=== PATIENT | female | born 1970 | race Caucasian/White ===

== ENCOUNTER → 2019-06-08 | Emergency (ER) | payer SELFPAY ==

== ENCOUNTER 2020-04-07 20:44 | Emergency (ER) | payer SELFPAY ==
--- NOTE | 2020-04-07 21:50 | RAD ---
EXAM: XR Chest, 1 View CLINICAL HISTORY: sob TECHNIQUE: Frontal view of the chest. COMPARISON: No relevant prior studies available. FINDINGS: Lungs: Unremarkable. No consolidation. Pleural space: Unremarkable. No pneumothorax. Heart: Unremarkable. No cardiomegaly. Mediastinum: Unremarkable. Bones/joints: Unremarkable. IMPRESSION: No abnormality noted. Electronically signed by: Gissell Crowley MD 04/07/2020 9:48 PM CDT
--- NOTE | 2020-04-07 22:00 | ED.PDOC ---
History of Present Illness - General Chief Complaint: Respiratory Problem Time Seen by Provider: 04/07/20 20:55 Source: patient Exam Limitations: no limitations - History of Present Illness Initial Comments: The patient is a 49-year-old female presented emergency room secondary to a constellation of symptoms. Symptoms have been ongoing for the last week. No definite fever. She has a feeling of very mild shortness of breath but no fever. No cough. No sore throat. No runny nose. She has had some mild nausea but only one episode of vomiting. Occasional mild diarrhea. The patient does take a water pill but has been outside fairly extensively in the heat recently. She is also been having some muscle cramps in the lower extremities. No focal neurological changes. No trauma. No urinary symptoms. Timing/Duration: 1 week Severity: moderate Improving Factors: nothing Worsening Factors: nothing Associated Symptoms: headaches, loss of appetite, malaise, nausea/vomiting Allergies/Adverse Reactions: Allergies NO KNOWN ALLERGY Allergy (Verified 04/07/20 21:10) Review of Systems - Review of Systems Constitutional: States: malaise EENTM: States: no symptoms reported Respiratory: States: short of breath Cardiology: States: no symptoms reported Gastrointestinal/Abdominal: States: diarrhea, nausea Genitourinary: States: no symptoms reported Musculoskeletal: States: muscle pain Skin: States: no symptoms reported Neurological: States: headache Endocrine: States: no symptoms reported Hematologic/Lymphatic: States: no symptoms reported All other Systems: No Change from Baseline Past Medical History (General) - Patient Medical History Hx Congestive Heart Failure: Yes Surgical History: tonsillectomy - Vaccination History Hx Tetanus, Diphtheria Vaccination: No Hx Influenza Vaccination: No Hx Pneumococcal Vaccination: No - Social History Hx Tobacco Use: No Hx Alcohol Use: No Hx Substance Use: No Hx Substance Use Treatment: No Hx Depression: No - Female History Patient is a Female of Child Bearing Age (10 -59 yrs old): Yes - 3 days ago Patient : No Family Medical History - Family History Mother Family History: Unknown Physical Exam - Physical Exam General Appearance: Alert, Comfortable, No apparent distress Eye Exam: bilateral normal Ears, Nose, Throat: hearing grossly normal, normal ENT inspection, normal pharynx Neck: full range of motion, supple Respiratory: lungs clear, normal breath sounds, no respiratory distress, no accessory muscle use Cardiovascular/Chest: normal peripheral pulses, regular rate, rhythm, no edema Peripheral Pulses: radial,right: 2+, radial,left: 2+ Gastrointestinal/Abdominal: non tender, soft - Obese Rectal Exam: deferred Back Exam: no CVA tenderness, no vertebral tenderness Extremity: normal range of motion, non-tender, normal inspection, no pedal edema, normal capillary refill 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 She needs to increase her fluid intake over the next 2 to 3 days and I would also encourage her to hold her water pills for the next 3 days. She can discuss with her primary care doctor about doing possibly a staggered dose over the summer while she is working outside. Further dehydration. Also vegetable picker some [id number] Maalox to reduce any gastritis issues that she is currently having. She needs to eat a bland diet and keep her self well-hydrated. Work-up here is otherwise reassuring. The patient did receive a coronavirus test however the likelihood of this being coronavirus is felt to be low. ER warnings are given. falguni wells [phone] - Results/Orders Results/Orders: Coronavirus test is a send out. EKG shows normal sinus rhythm at 64 bpm normal axis. Normal R wave progression. No ST segment or T wave changes indicative of acute ischemia. Normal QT interval. Mild left atrial dilation. Chest x-ray shows no acute pathology. Laboratory Tests 04/07/20 04/07/20 04/07/20 21:13 21:17 21:17 WBC 10.7 RBC 5.08 Hgb 12.6 Hct 38.6 MCV 75.9 L MCH 24.7 L MCHC 32.6 L RDW 15.7 H Plt Count 372 MPV 7.3 L Absolute Neuts (auto) 7.20 H Absolute Lymphs (auto) 2.30 Absolute Monos (auto) 0.80 Absolute Eos (auto) 0.40 Absolute Basos (auto) 0.10 Neutrophils % 66.8 Lymphocytes % 21.1 Monocytes % 7.2 Eosinophils % 4.1 Basophils % 0.8 PT INR PTT (SP) Sodium 142 Potassium 3.5 L Chloride 112 H Carbon Dioxide 21 Anion Gap 12.5 BUN 18 Creatinine 0.84 BUN/Creatinine Ratio 21.4 H Random Glucose 81 Serum Osmolality 284.0 Calcium 9.3 Magnesium 2.0 Total Bilirubin 0.5 AST 17 ALT 15 Alkaline Phosphatase 76 Creatine Kinase 94 CK-MB (CK-2) 1.4 CK-MB (CK-2) % Not Reportable Troponin I < 0.02 B-Natriuretic Peptide 101.0 H Serum Total Protein 8.1 Albumin 4.4 Globulin 3.7 H Albumin/Globulin Ratio 1.2 Amylase 109 H Lipase 47 TSH 2.97 Urine Color Yellow Urine Appearance Clear Urine pH 7.0 Ur Specific [place] 1.025 Urine Protein Negative Urine Glucose (UA) Negative Urine Ketones Negative Urine Blood Negative Urine Nitrite Negative Urine Bilirubin Negative Urine Urobilinogen 0.2 Ur Leukocyte Esterase Negative Urine RBC 0-1 Urine WBC 0-1 Ur Epithelial Cells 3-5 Urine Bacteria Rare Urine HCG, Qual Group A Strep Rapid 04/07/20 04/07/20 21:17 21:17 WBC RBC Hgb Hct MCV MCH MCHC RDW Plt Count MPV Absolute Neuts (auto) Absolute Lymphs (auto) Absolute Monos (auto) Absolute Eos (auto) Absolute Basos (auto) Neutrophils % Lymphocytes % Monocytes % Eosinophils % Basophils % PT 9.8 INR < 1.00 PTT (SP) 22.8 Sodium Potassium Chloride Carbon Dioxide Anion Gap BUN Creatinine BUN/Creatinine Ratio Random Glucose Serum Osmolality Calcium Magnesium Total Bilirubin AST ALT Alkaline Phosphatase Creatine Kinase CK-MB (CK-2) CK-MB (CK-2) % Troponin I B-Natriuretic Peptide Serum Total Protein Albumin Globulin Albumin/Globulin Ratio Amylase Lipase TSH Urine Color Urine Appearance Urine pH Ur Specific [place] Urine Protein Urine Glucose (UA) Urine Ketones Urine Blood Urine Nitrite Urine Bilirubin Urine Urobilinogen Ur Leukocyte Esterase Urine RBC Urine WBC Ur Epithelial Cells Urine Bacteria Urine HCG, Qual Negative Group A Strep Rapid Negative Departure - Departure Clinical Impression: Dehydration Disposition: Discharge to Home or Self Care Condition: Fair Departure Forms: ED Discharge - Pt. Copy, Patient Portal Self Enrollment Instructions: Dehydration, Adult (DC) Diet: regular diet Activity: increase activity as tolerated Additional Instructions: The patient is a 49-year-old female presented emergency room with a constellation of symptoms that are mostly most likely related to dehydration. She needs to increase her fluid intake over the next 2 to 3 days and I would also encourage her to hold her water pills for the next 3 days. She can discuss with her primary care doctor about doing possibly a staggered dose over the summer while she is working outside. Further dehydration. Also vegetable picker some [id number] Maalox to reduce any gastritis issues that she is currently having. She needs to eat a bland diet and keep her self well-hydrated. Work-up here is otherwise reassuring. The patient did receive a coronavirus test however the likelihood of this being coronavirus is felt to be low. ER warnings are given.
[2020-04-07 22:15] VITALS: BP 136/81; TEMP 97; O2SAT 99
== END 2020-04-07 22:06 | disposition home or self-care (01) ==
LOC: ER 20:44
DX: E86.0 Dehydration (principal); R06.02 Shortness of breath; R11.2 Nausea with vomiting, unspecified; R51 Headache; Z11.59 Encounter for screening for other viral diseases

== ENCOUNTER 2020-05-19 20:39 | Emergency (ER) | payer SELFPAY ==
--- NOTE | 2020-05-19 20:50 | ED.PDOC ---
History of Present Illness - General Time Seen by Provider: 05/19/20 20:45 - History of Present Illness Initial Comments: 49 yo F with a PMH of CHF, comes in with AMS. Per patient she states she went to bed after work, when she woke up and she had people around her. She denies d izziness, fall, cp. States she has not been feeling well the past few days. Feels short of breath at times. states she hasn't slept well in weeks due to cramps and restlessness of her legs. last night only slept 1.5 hrs, night before that only 3 hours. Allergies/Adverse Reactions: Allergies NO KNOWN ALLERGY Allergy (Verified 04/07/20 21:10) Home Medications: Ambulatory Orders Cyclobenzaprine Tab (ER Disp) [Flexeril Tab (ER Dispense)] 10 mg PO QPM #3 tab 05/19/20 rOPINIRole HCL [Requip] 0.25 mg PO QPM #30 tab 05/19/20 Review of Systems - Review of Systems Constitutional: States: malaise. Denies: chills, diaphoresis, fever, weakness EENTM: Denies: eye pain, ear pain, nose pain, throat pain, mouth pain Respiratory: States: short of breath. Denies: cough, stridor, wheezing Cardiology: Denies: chest pain, edema, palpitations, syncope Gastrointestinal/Abdominal: Denies: abdominal pain, constipation, diarrhea, nausea, vomiting Genitourinary: Denies: dysuria, frequency, hematuria Musculoskeletal: Denies: joint pain, joint swelling, muscle pain, muscle stiffness Neurological: States: headache. Denies: numbness, paresthesia Endocrine: Denies: increased urine, unexplained weight gain, unexplained weight loss Hematologic/Lymphatic: Denies: blood clots, easy bleeding, easy bruising Past Medical History (General) - Patient Medical History Hx Congestive Heart Failure: Yes - Vaccination History Hx Tetanus, Diphtheria Vaccination: No Hx Influenza Vaccination: No Hx Pneumococcal Vaccination: No - Social History Hx Tobacco Use: No Hx Alcohol Use: No Hx Substance Use: No Hx Substance Use Treatment: No Hx Depression: No - Female History Patient : No Family Medical History - Family History Mother Family History: Unknown Physical Exam - Physical Exam General Appearance: Alert, Comfortable, No apparent distress Eye Exam: bilateral normal Ears, Nose, Throat: hearing grossly normal, normal ENT inspection, normal pharynx Neck: normal inspection Respiratory: chest non-tender, lungs clear, normal breath sounds, no respiratory distress, no accessory muscle use Cardiovascular/Chest: normal peripheral pulses, regular rate, rhythm, no edema, no gallop, no JVD, no murmur Peripheral Pulses: radial,right: 2+, radial,left: 2+, dorsalis pedis,right: 2+, dorsalis pedis,left: 2+ Gastrointestinal/Abdominal: normal bowel sounds, non tender, soft, no organomegaly, no pulsatile mass Rectal Exam: deferred Back Exam: normal inspection, no CVA tenderness, no vertebral tenderness Extremity: normal range of motion, non-tender, normal inspection, no pedal edema, no calf tenderness, normal capillary refill Neurologic: manager residential II-XII nml as tested, no motor/sensory deficits, alert, oriented x 3, other - steady gait, does have neck pain DTR: 2+: Patellar, left, Patellar, right Skin Exam: normal color, warm/dry Lymphatic: no adenopathy Comments: Mental status: A/Ox3 CN II-XII tested and intact. Sensation intact to sharp/dull differentiation in all extremities. Motor: Normal tone and bulk. No abnormal movements appreciated. No pronator drift. Strength tested and 5/5 in bilateral wrist flexion/extension, elbow flexion/extension, shoulder abduction, straight leg raise, knee fl exion/extension, ankle dorsiflexion/plantarflexion. Patient ambulates with a steady gait. Coordination: Finger to nose and heel to bennett testing intact bilaterally. Progress - Progress Progress: EKG SHows HR 72, Normal intervals, NSR, no evidence of ischemia. cxr, ct head and xray knee was negative for acute pathology. It does show moderate OA of knee. Patient oriented, answering appropriately. No focal deficits. I believe patient confusion is from the lack of sleep she is getting. no evidence of AMS since arrival here. The data reviewed when caring for this patient included: nurse notes, prior records, etc. The history and assessments from nurses notes were reviewed and considered, and the patient's home medication list was also reviewed and considered. My assessment and the results of testing completed here in the ED were discussed with the patient/family. All questions were answered, and they express understanding of my assessment and the plan. patient instructed to follow up on hematuria. Encourage decrease caffeine, good sleep hygiene. They have been instructed to return if their symptoms worsen, and have been asked to follow up with their primary care physician to recheck today's presenting complaint. Strict return precautions given. I have reviewed medication, benefits, alternatives and side effects. Patient decided to proceed with medication. Kaykay Ortiz DO #[id number] - Results/Orders Results/Orders: 05/19/20 21:00 EKG STAT 05/19/20 21:55 Knee,Left Complete [RAD] Stat 05/19/20 22:30 RESPIRATORY PANEL 2 Stat 05/20/20 21:33 Magnesium Oxide [Mag-Ox Tab] 400 mg PO ONCE ONE Laboratory Results WBC 9.3 K/mm3 (4.8-10.8) 05/19/20 20:54 RBC 4.50 M/mm3 (4.20-5.40) 05/19/20 20:54 Hgb 11.4 gm/dL (12.0-16.0) L 05/19/20 20:54 Hct 34.4 % (36.0-47.0) L 05/19/20 20:54 MCV 76.5 fl (81.0-99.0) L 05/19/20 20:54 MCH 25.4 pg (27.0-31.0) L 05/19/20 20:54 MCHC 33.2 g/dL (33.0-37.0) 05/19/20 20:54 RDW 16.7 % (11.5-14.5) H 05/19/20 20:54 Plt Count 368 K/mm3 (130-400) 05/19/20 20:54 MPV 7.4 fl (7.40-10.4) 05/19/20 20:54 Absolute Neuts (auto) 6.20 K/uL (1.8-6.8) 05/19/20 20:54 Absolute Lymphs (auto) 1.90 K/uL (1.0-3.4) 05/19/20 20:54 Absolute Monos (auto) 0.60 K/uL (0.2-0.8) 05/19/20 20:54 Absolute Eos (auto) 0.50 K/uL (0.0-0.4) H 05/19/20 20:54 Absolute Basos (auto) 0.10 K/uL (0.0-0.1) 05/19/20 20:54 Neutrophils % 66.4 % (42.0-78.0) 05/19/20 20:54 Lymphocytes % 20.6 % (20.0-50.0) 05/19/20 20:54 Monocytes % 6.8 % (2.0-9.0) 05/19/20 20:54 Eosinophils % 4.9 % (1.0-5.0) 05/19/20 20:54 Basophils % 1.3 % (0.0-2.0) 05/19/20 20:54 PT 9.9 SECONDS (9.0-10.9) 05/19/20 20:54 INR 1.00 (0.9-1.15) 05/19/20 20:54 PTT (SP) 23.5 SECONDS (21.8-31.6) 05/19/20 20:54 D-Dimer, Quantitative < 131.0 ng/ml (131-400) L 05/19/20 20:54 pCO2 29 mmHg (32-45) L 05/19/20 21:42 pO2 101 mmHg (83-108) 05/19/20 21:42 HCO3 18.3 mmol/L 05/19/20 21:42 ABG pH 7.411 (7.35-7.45) 05/19/20 21:42 ABG O2 Saturation 98.4 % (95.0-99.0) 05/19/20 21:42 ABG Base Excess -5.3 mmol/L 05/19/20 21:42 ABG Deoxyhemoglobin 1.6 % (0.0-5.0) 05/19/20 21:42 Oxyhemoglobin % 96.9 % (94.0-98.0) 05/19/20 21:42 Carboxyhemoglobin % 0.8 % (0.5-1.5) 05/19/20 21:42 Methemoglobin % Sat 0.7 % (0.0-1.5) 05/19/20 21:42 Calc Total Hemoglobin 10.3 g/dL (12.0-16.0) L 05/19/20 21:42 Sodium 140 mmol/L (135-145) 05/19/20 20:54 Potassium 3.4 mmol/L (3.6-5.0) L 05/19/20 20:54 Chloride 111 mmol/L (101-111) 05/19/20 20:54 Carbon Dioxide 22 mmol/L (21-31) 05/19/20 20:54 Anion Gap 10.4 (12-18) L 05/19/20 20:54 BUN 22 mg/dL (7-18) H 05/19/20 20:54 Creatinine 0.84 mg/dL (0.6-1.3) 05/19/20 20:54 BUN/Creatinine Ratio 26.2 (10-20) H 05/19/20 20:54 Random Glucose 94 mg/dL (70-105) 05/19/20 20:54 Serum Osmolality 282.5 mOsm/L (275-295) 05/19/20 20:54 Calcium 8.7 mg/dL (8.4-10.2) 05/19/20 20:54 Phosphorus 3.3 mg/dL (2.5-4.6) 05/19/20 20:54 Magnesium 1.9 mg/dL (1.8-2.5) 05/19/20 20:54 Total Bilirubin 0.6 mg/dL (0.2-1.0) 05/19/20 20:54 AST 16 IU/L (10-42) 05/19/20 20:54 ALT 14 IU/L (10-60) 05/19/20 20:54 Alkaline Phosphatase 63 IU/L (42-121) 05/19/20 20:54 Ammonia 18 umol/L (10-35) 05/19/20 20:54 Creatine Kinase 125 IU/L (26-140) 05/19/20 20:54 Troponin I < 0.02 ng/mL (0.01-0.05) 05/19/20 20:54 B-Natriuretic Peptide 34.9 pg/ml (0-100) 05/19/20 20:54 Serum Total Protein 7.3 gm/dL (6.4-8.2) 05/19/20 20:54 Albumin 4.0 g/dl (3.2-5.5) 05/19/20 20:54 Globulin 3.3 gm/dL (2.3-3.5) 05/19/20 20:54 Albumin/Globulin Ratio 1.2 (1.1-1.9) 05/19/20 20:54 Urine Color Yellow (Yellow) 05/19/20 22:30 Urine Appearance Sl cloudy (Clear) 05/19/20 22:30 Urine pH 8.5 (4.5-7.8) H 05/19/20 22:30 Ur Specific [place] 1.020 (1.005-1.030) 05/19/20 22:30 Urine Protein Negative mg/dL 05/19/20 22:30 Urine Glucose (UA) Negative mg/dL (Negative) 05/19/20 22:30 Urine Ketones Negative mg/dL (NEGATIVE) 05/19/20 22:30 Urine Blood Small (Negative) H 05/19/20 22:30 Urine Nitrite Negative 05/19/20 22:30 Urine Bilirubin Negative (NEGATIVE) 05/19/20 22:30 Urine Urobilinogen 0.2 mg/dL (0.2-1.0) 05/19/20 22:30 Ur Leukocyte Esterase Negative (Negative) 05/19/20 22:30 Urine RBC 3-5 /hpf H 05/19/20 22:30 Urine WBC 0-1 /hpf 05/19/20 22:30 Ur Epithelial Cells 1-3 /hpf 05/19/20 22:30 Amorphous Sediment 1+ 05/19/20 22:30 Urine Bacteria Rare 05/19/20 22:30 Salicylates < 4.0 mg/dL (0-29.9) 05/19/20 20:54 Urine Opiates Screen Negative ng/mL (2000) 05/19/20 22:58 Acetaminophen < 10.0 ug/mL (10.0-30.0) L 05/19/20 20:54 Urine Barbiturates Negative ng/mL (200) 05/19/20 22:58 Ur Phencyclidine Scrn Negative ng/mL (25) 05/19/20 22:58 U Amphetamin/Meth Scrn Negative ng/mL (1000) 05/19/20 22:58 U Benzodiazepines Scrn Negative ng/mL (200) 05/19/20 22:58 U Cocaine Metab Screen Negative ng/mL (300) 05/19/20 22:58 U Cannabinoids Screen Negative ng/mL (50) 05/19/20 22:58 Ethyl Alcohol < 5.40 mg/dL (0-79) 05/19/20 20:54 Serum Ketones Negative 05/19/20 20:54 Departure - Departure Clinical Impression: Restless leg syndrome, Arthritis Insomnia disorder Qualifiers: Insomnia type: unspecified Qualified Code(s): G47.00 - Insomnia, unspecified Time of Disposition: 23:17 Disposition: Discharge to Home or Self Care Instructions: Insomnia, Restless Legs Syndrome, Tips for Getting Better Sleep Referrals: Zeferino Bryan MD [Primary Care Provider] - 1-2 Days Prescriptions: Cyclobenzaprine Tab (ER Disp) [Flexeril Tab (ER Dispense)] 10 mg PO QPM #3 tab rOPINIRole HCL [Requip] 0.25 mg PO QPM #30 tab Home Medications: Ambulatory Orders Cyclobenzaprine Tab (ER Disp) [Flexeril Tab (ER Dispense)] 10 mg PO QPM #3 tab 05/19/20 rOPINIRole HCL [Requip] 0.25 mg PO QPM #30 tab 05/19/20
[2020-05-19 21:20] VITALS: TEMP 97.8
--- NOTE | 2020-05-19 21:38 | RAD ---
EXAM DESCRIPTION: Chest,1 View CLINICAL HISTORY:49 years Female, short of breath Comparison: Chest radiograph dated 04/07/2020 FINDINGS: No focal lung consolidation. No pleural effusion. No pneumothorax. Cardiomediastinal silhouette is within normal limits. No acute osseous abnormality. IMPRESSION: No acute cardiopulmonary disease. Electronically signed by: Idris Espino DO 05/19/2020 9:37 PM CDT
--- NOTE | 2020-05-19 21:38 | CT ---
EXAM DESCRIPTION: Head CLINICAL HISTORY: 49 years Female ams COMPARISON: None Technique: Contiguous axial images of the brain were obtained without the administration of intravenous contrast.This exam was performed according to our departmental dose-optimization program which includes use of Automated Exposure Control, adjustment of the mA and/or kV according to patient size and/or use of iterative reconstruction technique. DLP: 859 mGy*cm FINDINGS: Brain: No acute intracranial hemorrhage. No extra-axial collection. No mass effect or herniation. Ventricles: Within normal limits in size. Globes and orbits: No acute abnormality. Bones: No acute osseous finding Paranasal sinuses: Paranasal sinuses are clear. Mastoid air cells: Well pneumatized. Soft tissues: Within normal limits IMPRESSION: No acute intracranial abnormality. Electronically signed by: Idris Espino DO 05/19/2020 9:36 PM CDT
[2020-05-19] MEDS ORDERED: diazePAM 2 MG TAB PO ONE ×2 (21:45→23:15)
[2020-05-19] MEDS ORDERED: MAGNESIUM OXIDE 400 MG TAB ONE (21:47)
[2020-05-19 22:16] VITALS: O2SAT 97
--- NOTE | 2020-05-19 23:44 | RAD ---
EXAM DESCRIPTION: Knee,Left Complete CLINICAL HISTORY: 49 years Female knee pain COMPARISON: None. TECHNIQUE: Left knee, 3 views FINDINGS: No acute fractures or dislocations are identified. No osseous destructive lesions. No joint effusion is noted. Narrowing of the medial joint compartment with marginal osteophytosis. Lateral patellar tilt. The Insall Salvati ratio is 1.3 consistent with patella baja. IMPRESSION: No acute fracture is identified. Patella baja Mild degenerative changes worse in the medial joint compartment Electronically signed by: Sharri Sihpley MD 05/19/2020 11:42 PM CDT
[2020-05-20 00:34] VITALS: BP 146/76
[2020-05-20] MEDS ORDERED: MAGNESIUM OXIDE 400 MG TAB PO ONE (21:33)
== END 2020-05-20 00:01 | disposition home or self-care (01) ==
LOC: ER 20:39
DX: G47.00 Insomnia, unspecified (principal); G25.81 Restless legs syndrome; G47.62 Sleep related leg cramps; M17.12 Unilateral primary osteoarthritis, left knee; R41.82 Altered mental status, unspecified; R06.02 Shortness of breath; I50.9 Heart failure, unspecified; Z20.828 Contact with and (suspected) exposure to other viral communicable diseases